=== PATIENT | male | born 1950 | race Hispanic/Latino ===

== ENCOUNTER 2016-06-12 15:17 | Emergency (ER) | payer MEDICARE ==
[2016-06-12 16:20] VITALS: BP 120/82
[2016-06-12] MEDS ORDERED: MARCAINE 0.5% INFILTRATI ONE (18:14)
[2016-06-12] MEDS ORDERED: TRIPLE ANTIBIOTIC TP ONE ×2 (18:14→19:10)
[2016-06-12] MEDS ORDERED: NACL 0.9% IR ONE (18:14)
[2016-06-12] MEDS ORDERED: BOOSTRIX IM ONE (18:14)
[2016-06-12] MEDS ORDERED: NORCO 5/325 PO ONE (18:14)
--- NOTE | 2016-06-12 18:28 | Emergency Department Report ---
HPI - General Chief Complaint: Wound/Laceration Time Seen by Provider: 06/12/16 18:12 - HPI HPI: 65-year-old male presents today with a cut to his right thumb that occurred at 11 AM this morning. Patient states he was working in [place], [place] when he cut his thumb with a utility knife. Positive for bleeding. Denies numbness, weakness, paresthesias. Tetanus status unknown. Denies fever, chills, nausea, vomiting, chest pain, shortness of breath, abdominal pain. ED Past Medical Hx - Past Medical History Previous Medical History?: Yes Hx Arthritis: Yes Hx Psychiatric Treatment: Yes (anxiety, sleeping disorder) Additional medical history: Back pain - Surgical History Past Surgical History?: No - Social History Smoking Status: Former Smoker Substance Use Type: Alcohol, Prescribed - Medications Home Medications: Home Medications Medication Instructions Recorded Confirmed Last Taken Type Acetaminophen/Codeine [Tylenol #3] 1 tab PO Q6H PRN #14 tab 06/12/16 Unknown Rx Sertraline HCl [Zoloft] 100 mg PO 06/12/16 06/12/16 History Zolpidem [Ambien] 10 mg PO QHS 06/12/16 06/12/16 Unknown History tiZANidine [Zanaflex] 4 mg PO DAILY 06/12/16 06/12/16 06/10/16 History traMADol [Ultram] 50 mg PO Q4HR PRN 06/12/16 06/12/16 Unknown History ED Review of Systems ROS: Stated complaint: RT HAND THUMB LAC Other details as noted in HPI Constitutional: denies: chills, fever, malaise Eyes: denies: eye pain ENT: denies: ear pain, throat pain, congestion Respiratory: denies: cough, shortness of breath, wheezing Cardiovascular: denies: chest pain, palpitations Endocrine: no symptoms reported Gastrointestinal: denies: abdominal pain, nausea, vomiting Skin: denies: rash Neurological: denies: headache, weakness, numbness, paresthesias Physical Exam - Physical Exam Vital Signs: Vital Signs 06/12/16 16:15 Temperature 98.1 F Pulse Rate 67 Respiratory 18 Rate Blood Pressure 120/82 O2 Sat by Pulse 96 Oximetry Physical Exam: GENERAL: The patient is well-developed and well-nourished. Patient is in NAD. HEAD: Normocephalic. Atraumatic. CHEST/LUNGS: Clear to auscultation throughout. HEART/CARDIOVASCULAR: Regular rate and rhythm. ABDOMEN: Abdomen is soft, nontender. Bowel sounds normoactive. No guarding or rebound tenderness. RIGHT HAND: 1.5cm superficial laceration noted over the first metacarpophalangeal joint. No active bleeding. Normal sensation. 2 point discrimination intact. Peripheral pulses intact. Capillary refill less than 2 seconds. NEURO: Alert and oriented x 3. Normal gait. ED Course Vital Signs 06/12/16 16:15 Temperature 98.1 F Pulse Rate 67 Respiratory 18 Rate Blood Pressure 120/82 O2 Sat by Pulse 96 Oximetry - Laceration /Wound Repair Right Hand Wound Location: upper extremity Wound Length (cm): 2 Wound's Depth, Shape: superficial Wound Explored: clean Irrigated w/ Saline (ccs): 500 Betadine Prep?: Yes Anesthesia: 1% Lidocaine Volume Anesthetic (ccs): 2 Wound Repaired With: sutures Suture Size/Type: 5:0 Number of Sutures: 4 Layer Closure?: No Progress: Patient tolerated the procedure well. Wound care instructions were provided. ED Medical Decision Making - Lab Data Vital Signs 06/12/16 16:15 Temperature 98.1 F Pulse Rate 67 Respiratory 18 Rate Blood Pressure 120/82 O2 Sat by Pulse 96 Oximetry - Medical Decision Making 65-year-old male presents today with a laceration of his right hand. His tetanus status was updated today. The wound was closed using 5 sutures. Patient tolerated the procedure well. Wound care instructions were provided. Patient is in no acute distress at this time. He will be discharged home and is encouraged to follow up with a primary care provider. He will be sent home on Tylenol 3 and is encouraged to return to the emergency room for any worsening symptoms. Critical care attestation.: If time is entered above; I have spent that time in minutes in the direct care of this critically ill patient, excluding procedure time. ED Disposition Clinical Impression: Laceration Disposition: DISCHARGED TO HOME OR SELFCARE Is pt being admited?: No Does the pt Need Aspirin: No Condition: Stable Instructions: Suture Care (ED), Laceration (ED) Additional Instructions: Had the sutures removed in 8-10 days. Follow-up with primary care provider. Return to the emergency department if symptoms worsen. Prescriptions: Acetaminophen/Codeine [Tylenol #3] 1 tab PO Q6H PRN #14 tab PRN Reason: Pain Referrals: PRIMARY CARE, [Primary Care Provider] - 3-5 Days [facility] [Outside] - 3-5 Days Forms: Work/School Release Form(ED) Time of Disposition: 19:13
== END 2016-06-12 19:15 | disposition home or self-care (01) ==
LOC: ED 15:17
DX: S61.012A Laceration without foreign body of left thumb without damage to nail, initial encounter (principal); Z87.891 Personal history of nicotine dependence; Z87.39 Personal history of other diseases of the musculoskeletal system and connective tissue; W26.0XXA Contact with knife, initial encounter; Y93.9 Activity, unspecified; Y92.9 Unspecified place or not applicable; Y99.9 Unspecified external cause status
CPT/HCPCS: 90471; 90715; A6250

== ENCOUNTER 2020-10-06 13:57 | Emergency (ER) | payer MEDICARE | END 2020-10-06 14:20 | disposition left against medical advice (07) | LOC: ED 13:57 | DX: R30.0 Dysuria (principal); Z53.21 Procedure and treatment not carried out due to patient leaving prior to being seen by health care provider ==

== ENCOUNTER 2020-10-06 15:53 | Observation (INO) | payer MEDICARE ==
[2020-10-06] MEDS ORDERED: MORPHINE 4 MG/1 ML INJ IV ONE (20:19)
[2020-10-06] MEDS ORDERED: ACETAMINOPHEN 325 MG TAB PO STA (20:19)
[2020-10-06] MEDS ORDERED: IPRATROPIUM 0.02% NEBU 2.5 ML IH ONE (20:20)
[2020-10-06] MEDS ORDERED: methylPREDNISolone Sod Succinate 125 MG/2 ML INJ IV ONE (20:20)
[2020-10-06] MEDS ORDERED: ALBUTEROL 2.5 MG/3 ML NEBU IH ONE (20:20)
--- NOTE | 2020-10-06 20:21 | Emergency Department Report ---
ED General Adult HPI - General Chief complaint: Urogenital-Male Stated complaint: UNABLE TO URINE PUI?: No Time Seen by Provider: 10/06/20 20:18 Source: patient, RN notes reviewed Mode of arrival: Ambulatory Limitations: Other (Patient is somewhat of a poor historian) - History of Present Illness Initial comments: The patient was evaluated in the emergency department for symptoms described in the history of present illness. He/she was evaluated in the context of the global COVID-19 pandemic, which necessitated consideration that the patient might be at risk for infection with the virus that causes COVID-19. Institutional protocols and algorithms that pertain to the evaluation of patients at risk for COVID-19 are in a state of rapid change based on information released by regulatory bodies including the CDC and federal and state organizations. These policies and algorithms were followed during the patient's care in the emergency department. Please note that these policies, procedures and recommendations changed on a rapid basis. The patient is a 70-year-old gentleman. He is not known to myself previously. His primary urologist is reportedly Dr. Barney. He believes his primary care doctor is Dr. Gil. The patient initially presents with a complaint of difficulty urinating. He recently had prostatic seeds implanted for prostate cancer a few days ago by his outpatient urologist. He is not having testicular pain or perineal pain, and reports intermittent difficulty in urinating, although this is now resolved. On review systems, he endorses cough, wheezing and shortness of breath, he does not know if he has a history of asthma, reactive airways disease, or bronchitis. He thinks that he may have been diagnosed with bronchitis in the past but he is not certain. He reports that he completed 1 round of COVID-19 vaccination series, and he denies loss of taste and smell. He also endorses left lateral thorax pain, and left upper quadrant pain, after a mechanical fall a few days ago, he did not hit his head. To the best of his knowledge, he does not have a history of atrial fibrillation or atrial flutter. He states he does not take systemic anticoagulation. -: Gradual, Sudden Location: chest (Left lateral chest), abdomen (Left upper quadrant) Severity scale (0 -10): 0 Quality: aching Consistency: intermittent Improves with: rest Worsens with: movement - Related Data Home Medications Medication Instructions Recorded Confirmed Last Taken Sertraline HCl [Zoloft] 100 mg PO 06/12/16 06/12/16 Zolpidem (Nf) [Ambien] 10 mg PO QHS 06/12/16 06/12/16 Unknown tiZANidine [Zanaflex] 4 mg PO DAILY 06/12/16 06/12/16 06/10/16 traMADoL [Ultram] 50 mg PO Q4HR PRN 06/12/16 06/12/16 Unknown Previous Rx's Medication Instructions Recorded Last Taken Type Acetaminophen/Codeine [Tylenol #3] 1 tab PO Q6H PRN #14 tab 06/12/16 Unknown Rx Allergies Allergy/AdvReac Type Severity Reaction Status Date / Time No Known Allergies Allergy Unverified 06/12/16 16:12 ED Review of Systems ROS: Stated complaint: UNABLE TO URINE Other details as noted in HPI Constitutional: malaise, other (Denies loss of taste and smell). denies: fever, weakness ENT: congestion Respiratory: cough, shortness of breath, wheezing Cardiovascular: chest pain (Left lateral thorax) Gastrointestinal: abdominal pain Genitourinary: as per HPI, other (Difficulty urinating). denies: dysuria, testicular pain Musculoskeletal: arthralgia (Left lateral rib cage pain), myalgia Skin: other (Perineum and testicular ecchymosis) Hematological/Lymphatic: denies: easy bleeding ED Past Medical Hx - Past Medical History Previous Medical History?: Yes Hx of Cancer: Yes (prostate) Hx Arthritis: Yes Hx Psychiatric Treatment: Yes (anxiety, sleeping disorder) Additional medical history: Back pain - Surgical History Past Surgical History?: No - Social History Smoking Status: Never Smoker Substance Use Type: Alcohol - Medications Home Medications: Home Medications Medication Instructions Recorded Confirmed Last Taken Type Acetaminophen/Codeine [Tylenol #3] 1 tab PO Q6H PRN #14 tab 06/12/16 Unknown Rx Sertraline HCl [Zoloft] 100 mg PO 06/12/16 06/12/16 History Zolpidem (Nf) [Ambien] 10 mg PO QHS 06/12/16 06/12/16 Unknown History tiZANidine [Zanaflex] 4 mg PO DAILY 06/12/16 06/12/16 06/10/16 History traMADoL [Ultram] 50 mg PO Q4HR PRN 06/12/16 06/12/16 Unknown History ED Physical Exam - General Limitations: No Limitations General appearance: alert, in no apparent distress - Head Head exam: Present: atraumatic, normocephalic - Eye Eye exam: Present: normal appearance, EOMI. Absent: nystagmus - ENT ENT exam: Present: normal exam, normal orophraynx, mucous membranes moist, normal external ear exam - Neck Neck exam: Present: normal inspection, full ROM. Absent: tenderness, meningismus - Respiratory Respiratory exam: Present: respiratory distress, wheezes, rhonchi, chest wall tenderness - Cardiovascular Cardiovascular Exam: Present: tachycardia, irregular rhythm, normal heart sounds. Absent: systolic murmur, diastolic murmur, rubs, gallop - GI/Abdominal GI/Abdominal exam: Present: soft, tenderness, other (There is left upper quadrant tenderness, without rebound, guarding or peritoneal sign). Absent: distended, guarding, rigid, pulsatile mass - Rectal Rectal exam: Present: deferred - exam: Present: other (There is normal testicular lie. There is normal cremasteric reflex. There is no testicular tenderness. There is no testicular swelling). Absent: normal inspection (Testicular ecchymosis noted. Perenium ecchymosis noted. chaperoned by Kavita Chang), testicular tenderness - Extremities Exam Extremities exam: Present: normal inspection, full ROM, pedal edema (1+ edema in the bilateral lower extremity), other (2+ pulses noted in the bilateral upper and lower extremities. There is no palpable cord. negative Homans sign. Muscular compartments are soft. The pelvis is stable.). Absent: calf tenderness - Back Exam Back exam: Present: normal inspection, full ROM. Absent: tenderness, CVA tenderness (R), CVA tenderness (L), paraspinal tenderness, vertebral tenderness - Neurological Exam Neurological exam: Present: alert, oriented X3, other (No facial droop. Tongue midline. Extraocular movements intact bilaterally. Facial sensation intact to light touch in V1, V2, V3 distribution bilaterally. 5 and a 5 strength in 4 extremities. Sensation intact to light touch in 4 extremities.) - Psychiatric Psychiatric exam: Present: anxious - Skin Skin exam: Present: warm, intact, ecchymosis ED Course Vital Signs 10/06/20 10/06/20 10/06/20 16:59 20:04 22:31 Temperature 98 F Pulse Rate 117 H 104 H 118 H Pulse Rate [ Anterior Bilateral Throughout] Pulse Rate [ Bilateral Throughout] Respiratory 20 19 Rate Respiratory Rate [Anterior Bilateral Throughout] Respiratory Rate [Bilateral Throughout] Blood Pressure 138/88 130/88 Blood Pressure 167/91 [Left] O2 Sat by Pulse 96 98 Oximetry 10/06/20 22:35 Temperature Pulse Rate Pulse Rate [ 113 H Anterior Bilateral Throughout] Pulse Rate [ 111 H Bilateral Throughout] Respiratory Rate Respiratory 20 Rate [Anterior Bilateral Throughout] Respiratory 20 Rate [Bilateral Throughout] Blood Pressure Blood Pressure [Left] O2 Sat by Pulse Oximetry - Reevaluation(s) Reevaluation #1: 10/06/20 22:28 Differential diagnosis, including but not limited to: BPH, urinary hesitancy, urinary tract infection, prostatitis, reactive airway disease, chest wall contusion, traumatic pulmonary disease, traumatic intra-abdominal disease A. fib with RVR, a flutter with RVR, permanent versus paroxysmal versus other Assessment and plan: 70-year-old gentleman with multiple complaints. Acute issue #1, intermittent difficulty with urinating, now resolved, in the context of recent prostatic seed placement a few days ago as an outpatient. He has no perineum tenderness, and no testicular tenderness. He reports being able to urinate without difficulty. Urine sample requested. Supportive care at this time. Acute complaint #2, left upper quadrant pain/left lateral rib pain, after m echanical fall. Administer pain medication, obtain x-ray of the chest, and CT scan of the abdomen pelvis to assess for posttraumatic sequelae. Incidentally found to be wheezing, patient is not sure if he has a history of reactive airways disease, also found to be in A. fib with RVR, patient does not know if he has a history of A. fib with RVR. Patient denies Covid exposure and reports having received a Covid vaccination. He also reports that he has no loss of taste or smell. Nursing team to request/reconcile home medications. Give albuterol, Atrovent, steroids, diltiazem, and reassess after initial data points. CT scan abdomen pelvis pending at this time. 10/06/20 23:09 CT scan of the abdomen pelvis is negative for acute traumatic findings. X-ray of the chest is negative for acute traumatic findings and/or infiltrate. Heart rate currently 89 bpm. Patient is still in A. fib. Patient does not know if he truly has a history of A. fib/flutter. Given advanced age, reactive airways disease, A. fib/flutter of unknown duration and chronicity, lower extremity edema, patient will be medicated with Lovenox, given Lasix, we have recommended admission to the medical service for expedient diagnostic work-up and evaluation. The patient is amenable to this plan of care. Discussed with hospital medicine nurse practitioner, Alessandro Varghese, working with Dr Lara; patient to be admitted to the medical service. Reevaluation #2: 10/06/20 23:11 Patient able to urinate without difficulty. Impetus for admission at this time is A. fib with RVR, of unknown duration and chronicity, lower extremity edema, proBNP of over 3000, and shortness of breath/reactive airways disease, uncertain if CHF, or reactive airways disease, to be admitted for expedited cardiac work-up. ED Medical Decision Making - Lab Data Result diagrams: 10/06/20 20:55 10/06/20 20:55 Vital Signs 10/06/20 10/06/20 16:59 20:04 Temperature 98 F Pulse Rate 117 H 104 H Respiratory 20 19 Rate Blood Pressure 138/88 Blood Pressure 167/91 [Left] O2 Sat by Pulse 96 98 Oximetry Lab Results 10/06/20 10/06/20 10/06/20 Range/Units 20:55 20:55 20:55 WBC 5.7 (4.5-11.0) K/mm3 RBC 4.26 (3.65-5.03) M/mm3 Hgb 13.5 (11.8-15.2) gm/dl Hct 37.4 (35.5-45.6) % MCV 88 (84-94) fl MCH 32 (28-32) pg MCHC 36 H (32-34) % RDW 13.0 L (13.2-15.2) % Plt Count 160 (140-440) K/mm3 Lymph % (Auto) 22.2 (13.4-35.0) % Jones % (Auto) 11.4 H (0.0-7.3) % Eos % (Auto) 0.5 (0.0-4.3) % Baso % (Auto) 1.3 (0.0-1.8) % Lymph # (Auto) 1.3 (1.2-5.4) K/mm3 Jones # (Auto) 0.7 (0.0-0.8) K/mm3 Eos # (Auto) 0.0 (0.0-0.4) K/mm3 Baso # (Auto) 0.1 (0.0-0.1) K/mm3 Seg Neutrophils % 64.6 (40.0-70.0) % Seg Neutrophils # 3.7 (1.8-7.7) K/mm3 PT 13.9 (12.2-14.9) Sec. INR 1.09 (0.87-1.13) Sodium 138 (137-145) mmol/L Potassium 3.7 (3.6-5.0) mmol/L Chloride 100.1 (98-107) mmol/L Carbon Dioxide 24 (22-30) mmol/L Anion Gap 18 mmol/L BUN 14 (9-20) mg/dL Creatinine 0.9 (0.8-1.3) mg/dL Estimated GFR > 60 ml/min BUN/Creatinine Ratio 16 % Glucose 105 H (75-100) mg/dL Calcium 8.7 (8.4-10.2) mg/dL Magnesium 2.00 (1.7-2.3) mg/dL Total Bilirubin 0.50 (0.1-1.2) mg/dL AST 31 (5-40) units/L ALT 26 (7-56) units/L Alkaline Phosphatase 80 (35-129) units/L Total Creatine Kinase 129 (55-170) units/L Troponin T (0.00-0.029) ng/mL NT-Pro-B Natriuret Pep 3456 H (0-900) pg/mL Total Protein 6.8 (6.3-8.2) g/dL Albumin 4.1 (3.9-5) g/dL Albumin/Globulin Ratio 1.5 % Lipase 28 (13-60) units/L TSH (0.270-4.200) mlU/mL 10/06/20 10/06/20 Range/Units 20:58 20:58 WBC (4.5-11.0) K/mm3 RBC (3.65-5.03) M/mm3 Hgb (11.8-15.2) gm/dl Hct (35.5-45.6) % MCV (84-94) fl MCH (28-32) pg MCHC (32-34) % RDW (13.2-15.2) % Plt Count (140-440) K/mm3 Lymph % (Auto) (13.4-35.0) % Jones % (Auto) (0.0-7.3) % Eos % (Auto) (0.0-4.3) % Baso % (Auto) (0.0-1.8) % Lymph # (Auto) (1.2-5.4) K/mm3 Jones # (Auto) (0.0-0.8) K/mm3 Eos # (Auto) (0.0-0.4) K/mm3 Baso # (Auto) (0.0-0.1) K/mm3 Seg Neutrophils % (40.0-70.0) % Seg Neutrophils # (1.8-7.7) K/mm3 PT (12.2-14.9) Sec. INR (0.87-1.13) Sodium (137-145) mmol/L Potassium (3.6-5.0) mmol/L Chloride (98-107) mmol/L Carbon Dioxide (22-30) mmol/L Anion Gap mmol/L BUN (9-20) mg/dL Creatinine (0.8-1.3) mg/dL Estimated GFR ml/min BUN/Creatinine Ratio % Glucose (75-100) mg/dL Calcium (8.4-10.2) mg/dL Magnesium (1.7-2.3) mg/dL Total Bilirubin (0.1-1.2) mg/dL AST (5-40) units/L ALT (7-56) units/L Alkaline Phosphatase (35-129) units/L Total Creatine Kinase (55-170) units/L Troponin T < 0.010 (0.00-0.029) ng/mL NT-Pro-B Natriuret Pep (0-900) pg/mL Total Protein (6.3-8.2) g/dL Albumin (3.9-5) g/dL Albumin/Globulin Ratio % Lipase (13-60) units/L TSH 0.778 (0.270-4.200) mlU/mL - EKG Data -: EKG Interpreted by [place] Rate: tachycardia - EKG Data When compared to previous EKG there are: previous EKG unavailable 10/06/20 22:50 EKG interpreted at 20: 33 A. fib/flutter waves noted in V1, 99 bpm. Normal axis, left ventricular hypertrophy, QTC prolonged, This is an abnormal EKG, this is not a STEMI There is no prior for comparison. - Radiology Data Radiology results: pending, report reviewed, image reviewed [address] [address] XRay Report Signed Patient: ANNETTE ESCUDERO MR#: [id number] : 1950 Acct:[id number] Age/Sex: 70 / M ADM Date: 10/06/20 Loc: ED Attending Dr: Ordering Physician: JACKIE PULIDO MD Date of Service: 10/06/20 Procedure(s): XR chest routine 2V Accession Number(s): [id number] cc: JACKIE PULIDO MD Fluoro Time In Minutes: CHEST 2 VIEWS INDICATION / CLINICAL INFORMATION: cough wheezing, lefty sided rib pain. COMPARISON: None available. FINDINGS: SUPPORT DEVICES: None. HEART / MEDIASTINUM: No significant abnormality. LUNGS / PLEURA: No significant pulmonary or pleural abnormality. No pneumothorax. ADDITIONAL FINDINGS: No significant additional findings. IMPRESSION: 1. No acute findings. Signer Name: John Prasad MD Signed: 10/06/2020 10:02 PM Workstation Name: [id number] Transcribed By: TL Dictated By: John Prasad MD Electronically Authenticated By: John Prasad MD Signed Date/Time: 10/06/202201 DD/ [address] [address] Cat Scan Report Signed Patient: ANNETTE ESCUDERO MR#: [id number] : 1950 Acct:[id number] Age/Sex: 70 / M ADM Date: 10/06/20 Loc: ED Attending Dr: Ordering Physician: JACKIE PULIDO MD Date of Service: 10/06/20 Procedure(s): CT abdomen pelvis w con Accession Number(s): [id number] cc: JACKIE PULIDO MD CT ABDOMEN AND PELVIS WITH CONTRAST INDICATION: luq pain, fall, urinary retention CONTRAST: 100 cc Omnipaque 300 IV COMPARISON: None available. All CT scans at this location are performed using CT dose reduction for ALARA by means of automated exposure control. FINDINGS: Lung bases are clear. No fractures are seen. No pneumoperitoneum is noted. No retroperitoneal or pelvic hemorrhage are seen. No free fluid is noted. Aorta appears intact. No mesenteric hemorrhage is noted. No evidence of visceral injury is seen. Small bilateral renal cysts and probable cysts are seen. No urinary or bowel obstructive changes are noted. No inflammatory changes are seen. Appendix appears within normal limits. Urinary bladder is distended but shows no acute abnormalities. Prostatic brachytherapy seeds are seen with mild prostatomegaly. Seminal vesicles appear within normal limits. No lymphadenopathy is seen. IMPRESSION: No acute abnormalities are seen Signer Name: Phi Archibald MD Signed: 10/06/2020 10:39 PM Workstation Name: [id number] Transcribed By: GJ Dictated By: Phi Archibald MD Electronically Authenticated By: Phi Archibald MD Signed Date/Time: 10/06/202238 DD/ 33 Critical Care Time: Yes Critical care time in (mins) excluding proc time.: 35 Critical care attestation.: If time is entered above; I have spent that time in minutes in the direct care of this critically ill patient, excluding procedure time. ED Disposition Clinical Impression: Urinary hesitancy, Atrial fibrillation with rapid ventricular response, Left upper quadrant abdominal pain, Fall, Reactive airway disease Disposition: OP ADMIT IP TO THIS HOSP Is pt being admited?: Yes Does the pt Need Aspirin: No Condition: Good Referrals: EDGARDO RODRIGUEZ MD [Primary Care Provider] - 3-5 Days
[2020-10-06] MEDS ORDERED: dilTIAZem 25 MG/5 ML INJ IV ONE (20:54)
[2020-10-06 21:09] LABS: Basophils # (Auto) 0.1 K/mm3 (0.0-0.1); Basophils % (Auto) 1.3 % (0.0-1.8); Eosinophils % (Auto) 0.5 % (0.0-4.3); Hematocrit 37.4 % (35.5-45.6); Hemoglobin 13.5 gm/dl (11.8-15.2); Lymphocytes # (Auto) 1.3 K/mm3 (1.2-5.4); Lymphocytes % (Auto) 22.2 % (13.4-35.0); Mean Corpuscular HGB Conc 36 % (32-34); Mean Corpuscular Volume 88 fl (84-94); Monocytes # (Auto) 0.7 K/mm3 (0.0-0.8); Monocytes % (Auto) 11.4 % (0.0-7.3); Platelet Count 160 K/mm3 (140-440); Red Blood Count 4.26 M/mm3 (3.65-5.03)
[2020-10-06 21:20] LABS: INR 1.09 (0.87-1.13)
[2020-10-06 21:32] LABS: Alanine Aminotransferase 26 units/L (7-56); Albumin 4.1 g/dL (3.9-5); BUN/Creatinine Ratio 16; Blood Urea Nitrogen 14 mg/dL (9-20); Calcium 8.7 mg/dL (8.4-10.2); Hemolysis Index 21
--- NOTE | 2020-10-06 22:07 | XRay Report ---
CHEST 2 VIEWS INDICATION / CLINICAL INFORMATION: cough wheezing, lefty sided rib pain. COMPARISON: None available. FINDINGS: SUPPORT DEVICES: None. HEART / MEDIASTINUM: No significant abnormality. LUNGS / PLEURA: No significant pulmonary or pleural abnormality. No pneumothorax. ADDITIONAL FINDINGS: No significant additional findings. IMPRESSION: 1. No acute findings. Signer Name: John Prasad MD Signed: 10/06/2020 10:02 PM Workstation Name: [id number]
[2020-10-06] MEDS ORDERED: methylPREDNISolone Sod Succinate 125 MG/2 ML INJ ONE (22:33)
--- NOTE | 2020-10-06 22:44 | Cat Scan Report ---
CT ABDOMEN AND PELVIS WITH CONTRAST INDICATION: luq pain, fall, urinary retention CONTRAST: 100 cc Omnipaque 300 IV COMPARISON: None available. All CT scans at this location are performed using CT dose reduction for ALARA by means of automated e xposure control. FINDINGS: Lung bases are clear. No fractures are seen. No pneumoperitoneum is noted. No retroperitone al or pelvic hemorrhage are seen. No free fluid is noted. Aorta appears intact. No mesenteric hemorrh age is noted. No evidence of visceral injury is seen. Small bilateral renal cysts and probable cysts are seen. No urinary or bowel obstructive changes are noted. No inflammatory changes are seen. Append ix appears within normal limits. Urinary bladder is distended but shows no acute abnormalities. Prost atic brachytherapy seeds are seen with mild prostatomegaly. Seminal vesicles appear within normal alex its. No lymphadenopathy is seen. IMPRESSION: No acute abnormalities are seen Signer Name: Phi Archibald MD Signed: 10/06/2020 10:39 PM Workstation Name: [id number]
[2020-10-06] MEDS ORDERED: ENOXAPARIN 100 MG/1 ML INJ SUB-Q STA (23:07)
[2020-10-06] MEDS ORDERED: FUROSEMIDE 20 MG/2 ML INJ IV ONE (23:07)
[2020-10-06] MEDS ORDERED: dilTIAZem 30 MG TAB PO ONE (23:07)
[2020-10-06] MEDS ORDERED: NITROGLYCERIN 0.4 MG TAB SUBL SL PRN (23:15)
[2020-10-06] MEDS ORDERED: ALBUTEROL 2.5 MG/3 ML NEBU IH PRN (23:20)
--- NOTE | 2020-10-06 23:58 | History and Physical Report ---
History of Present Illness Date of examination: 10/06/20 Date of admission: 10/06/2020 Chief complaint: Dysuria History of present illness: 70-year-old male with history of prostate cancer and A. fib who presents [facility] ED with complaints of dysuria x2 days. Patient states he has been experiencing a burning sensation with urination since undergoing rostatic seeds implant 2 days ago. Denies testicular pain, hematuria, urinary hesitancy, or frequency. While in the ED, he was found to be in A. fib with RVR. When questioned about his medical history patient states, " I was diagnosed with an irregular heartbeat 3 years ago, but I do not take anything for it". He was treated with IV diltiazem 30 mg x 1 and was responsive. Patient admits to having a mechanical fall a day ago and complains of left upper quadrant pain/left lateral rib pain. He rates his pain 6/10, pain is aggravated with movement and relieved with pain meds. Endorses intermittent bilateral lower extremity edema, cough, wheezing shortness of breath. Patient has received 1/2 COVID-19 vaccination. Denies history of heart failure, chest pain, fever, abdominal pain, hemoptysis, loss of smell, loss of taste, hematuria, hematochezia, recent sick contacts. Past History Past Medical History: other (" Irregular heartbeat" a.fib not on ac/ or rate controlled, arthritis, anxiety, sleep disorder, chronic back pain, prostate CA) Past Surgical History: Other (s/p seed implantation (10/04) Dr. Shelby (onc)) Social history: , lives with family, full code. denies: smoking, alcohol abuse, prescription drug abuse, IV drug use Family history: no significant family history Medications and Allergies Allergies Allergy/AdvReac Type Severity Reaction Status Date / Time No Known Allergies Allergy Unverified 06/12/16 16:12 Home Medications Medication Instructions Recorded Confirmed Last Taken Type Acetaminophen/Codeine [Tylenol #3] 1 tab PO Q6H PRN #14 tab 06/12/16 Unknown Rx Sertraline HCl [Zoloft] 100 mg PO 06/12/16 06/12/16 History Zolpidem (Nf) [Ambien] 10 mg PO QHS 06/12/16 06/12/16 Unknown History tiZANidine [Zanaflex] 4 mg PO DAILY 06/12/16 06/12/16 06/10/16 History traMADoL [Ultram] 50 mg PO Q4HR PRN 06/12/16 06/12/16 Unknown History Active Meds: Active Medications Albuterol (Albuterol 2.5 Mg/3 Ml Nebu) 2.5 mg IH Q4HRT PRN PRN Reason: Shortness Of Breath Aspirin (Aspirin 325 Mg Tab) 325 mg PO QDAY JANINE Carvedilol (Carvedilol 3.125 Mg Tab) 6.25 mg PO BID JANINE Enoxaparin Sodium (Enoxaparin 80 Mg/0.8 Ml Inj) 70 mg SUB-Q Q12HR JANINE; Protocol Furosemide (Furosemide 40 Mg/4 Ml Inj) 20 mg IV DAILY JANINE Lisinopril (Lisinopril 5 Mg Tab) 5 mg PO QDAY JANINE Nitroglycerin (Nitroglycerin 0.4 Mg Tab Subl) 0.4 mg SL .Q5MIN PRN PRN Reason: Chest Pain Review of Systems All systems: negative (As noted in HPI) Exam - Physical Exam Narrative exam: Physical exam General appearance: Present: No acute distress, alert and oriented 3, well- nourished, well-developed, older adult male - EENT Eyes: Present: PERRL, EOM intact ENT: hearing intact, normal dentition - Neck Neck: Present: supple, normal ROM - Respiratory Respiratory effort: Non-labored Respiratory: Scattered wheezing - Cardiovascular Heart rate: 89 (bpm) Rhythm: A. fib Heart Sounds: Present: S1 & S2. Absent: rub, click - Extremities Extremities: no ischemia, pulses intact, 1+ bilateral lower extremity pitting edema - Peripheral Assessment Peripheral Pulses: within normal limits - Abdominal General gastrointestinal: soft, non-tender, normal bowel sounds - Integumentary Integumentary: Present: warm, dry - Musculoskeletal Musculoskeletal: Able to move all extremities -Neurological Neurological: CN II-XII intact - Psychiatric Psychiatric: cooperative - Constitutional Vitals: Temp Pulse Resp BP Pulse Ox 98 F 113 H 20 130/88 98 10/06/20 16:59 10/06/20 22:35 10/06/20 22:35 10/06/20 22:31 10/06/20 20:04 HEART Score - HEART Score Troponin: WBC 5.7 K/mm3 (4.5-11.0) 10/06/20 20:55 RBC 4.26 M/mm3 (3.65-5.03) 10/06/20 20:55 Hgb 13.5 gm/dl (11.8-15.2) 10/06/20 20:55 Hct 37.4 % (35.5-45.6) 10/06/20 20:55 MCV 88 fl (84-94) 10/06/20 20:55 MCH 32 pg (28-32) 10/06/20 20:55 MCHC 36 % (32-34) H 10/06/20 20:55 RDW 13.0 % (13.2-15.2) L 10/06/20 20:55 Plt Count 160 K/mm3 (140-440) 10/06/20 20:55 Lymph % (Auto) 22.2 % (13.4-35.0) 10/06/20 20:55 [place] % (Auto) 11.4 % (0.0-7.3) H 10/06/20 20:55 Eos % (Auto) 0.5 % (0.0-4.3) 10/06/20 20:55 Baso % (Auto) 1.3 % (0.0-1.8) 10/06/20 20:55 Lymph # (Auto) 1.3 K/mm3 (1.2-5.4) 10/06/20 20:55 [place] # (Auto) 0.7 K/mm3 (0.0-0.8) 10/06/20 20:55 Eos # (Auto) 0.0 K/mm3 (0.0-0.4) 10/06/20 20:55 Baso # (Auto) 0.1 K/mm3 (0.0-0.1) 10/06/20 20:55 Seg Neutrophils % 64.6 % (40.0-70.0) 10/06/20 20:55 Seg Neutrophils # 3.7 K/mm3 (1.8-7.7) 10/06/20 20:55 PT 13.9 Sec. (12.2-14.9) 10/06/20 20:55 INR 1.09 (0.87-1.13) 10/06/20 20:55 Sodium 138 mmol/L (137-145) 10/06/20 20:55 Potassium 3.7 mmol/L (3.6-5.0) 10/06/20 20:55 Chloride 100.1 mmol/L (98-107) 10/06/20 20:55 Carbon Dioxide 24 mmol/L (22-30) 10/06/20 20:55 Anion Gap 18 mmol/L 10/06/20 20:55 BUN 14 mg/dL (9-20) 10/06/20 20:55 Creatinine 0.9 mg/dL (0.8-1.3) 10/06/20 20:55 Estimated GFR > 60 ml/min 10/06/20 20:55 BUN/Creatinine Ratio 16 % 10/06/20 20:55 Glucose 105 mg/dL (75-100) H 10/06/20 20:55 Calcium 8.7 mg/dL (8.4-10.2) 10/06/20 20:55 Magnesium 2.00 mg/dL (1.7-2.3) 10/06/20 20:55 Total Bilirubin 0.50 mg/dL (0.1-1.2) 10/06/20 20:55 AST 31 units/L (5-40) 10/06/20 20:55 ALT 26 units/L (7-56) 10/06/20 20:55 Alkaline Phosphatase 80 units/L (35-129) 10/06/20 20:55 Total Creatine Kinase 129 units/L (55-170) 10/06/20 20:55 Troponin T < 0.010 ng/mL (0.00-0.029) 10/06/20 20:58 NT-Pro-B Natriuret Pep 3456 pg/mL (0-900) H 10/06/20 20:55 Total Protein 6.8 g/dL (6.3-8.2) 10/06/20 20:55 Albumin 4.1 g/dL (3.9-5) 10/06/20 20:55 Albumin/Globulin Ratio 1.5 % 10/06/20 20:55 Lipase 28 units/L (13-60) 10/06/20 20:55 TSH 0.778 mlU/mL (0.270-4.200) 10/06/20 20:58 Results - Labs CBC & Chem 7: 10/06/20 20:55 10/06/20 20:55 Labs: Laboratory Last Values WBC 5.7 K/mm3 (4.5-11.0) 10/06/20 20:55 RBC 4.26 M/mm3 (3.65-5.03) 10/06/20 20:55 Hgb 13.5 gm/dl (11.8-15.2) 10/06/20 20:55 Hct 37.4 % (35.5-45.6) 10/06/20 20:55 MCV 88 fl (84-94) 10/06/20 20:55 MCH 32 pg (28-32) 10/06/20 20:55 MCHC 36 % (32-34) H 10/06/20 20:55 RDW 13.0 % (13.2-15.2) L 10/06/20 20:55 Plt Count 160 K/mm3 (140-440) 10/06/20 20:55 Lymph % (Auto) 22.2 % (13.4-35.0) 10/06/20 20:55 [place] % (Auto) 11.4 % (0.0-7.3) H 10/06/20 20:55 Eos % (Auto) 0.5 % (0.0-4.3) 10/06/20 20:55 Baso % (Auto) 1.3 % (0.0-1.8) 10/06/20 20:55 Lymph # (Auto) 1.3 K/mm3 (1.2-5.4) 10/06/20 20:55 [place] # (Auto) 0.7 K/mm3 (0.0-0.8) 10/06/20 20:55 Eos # (Auto) 0.0 K/mm3 (0.0-0.4) 10/06/20 20:55 Baso # (Auto) 0.1 K/mm3 (0.0-0.1) 10/06/20 20:55 Seg Neutrophils % 64.6 % (40.0-70.0) 10/06/20 20:55 Seg Neutrophils # 3.7 K/mm3 (1.8-7.7) 10/06/20 20:55 PT 13.9 Sec. (12.2-14.9) 10/06/20 20:55 INR 1.09 (0.87-1.13) 10/06/20 20:55 Sodium 138 mmol/L (137-145) 10/06/20 20:55 Potassium 3.7 mmol/L (3.6-5.0) 10/06/20 20:55 Chloride 100.1 mmol/L (98-107) 10/06/20 20:55 Carbon Dioxide 24 mmol/L (22-30) 10/06/20 20:55 Anion Gap 18 mmol/L 10/06/20 20:55 BUN 14 mg/dL (9-20) 10/06/20 20:55 Creatinine 0.9 mg/dL (0.8-1.3) 10/06/20 20:55 Estimated GFR > 60 ml/min 10/06/20 20:55 BUN/Creatinine Ratio 16 % 10/06/20 20:55 Glucose 105 mg/dL (75-100) H 10/06/20 20:55 Calcium 8.7 mg/dL (8.4-10.2) 10/06/20 20:55 Magnesium 2.00 mg/dL (1.7-2.3) 10/06/20 20:55 Total Bilirubin 0.50 mg/dL (0.1-1.2) 10/06/20 20:55 AST 31 units/L (5-40) 10/06/20 20:55 ALT 26 units/L (7-56) 10/06/20 20:55 Alkaline Phosphatase 80 units/L (35-129) 10/06/20 20:55 Total Creatine Kinase 129 units/L (55-170) 10/06/20 20:55 Troponin T < 0.010 ng/mL (0.00-0.029) 10/06/20 20:58 NT-Pro-B Natriuret Pep 3456 pg/mL (0-900) H 10/06/20 20:55 Total Protein 6.8 g/dL (6.3-8.2) 10/06/20 20:55 Albumin 4.1 g/dL (3.9-5) 10/06/20 20:55 Albumin/Globulin Ratio 1.5 % 10/06/20 20:55 Lipase 28 units/L (13-60) 10/06/20 20:55 TSH 0.778 mlU/mL (0.270-4.200) 10/06/20 20:58 - Diagnostic Impressions Diagnostic Impressions: CXR: FINDINGS: SUPPORT DEVICES: None. HEART / MEDIASTINUM: No significant abnormality. LUNGS / PLEURA: No significant pulmonary or pleural abnormality. No pneumothorax. ADDITIONAL FINDINGS: No significant additional findings. IMPRESSION: 1. No acute findings. CT Abd/Pelvis: CT ABDOMEN AND PELVIS WITH CONTRAST INDICATION: luq pain, fall, urinary retention CONTRAST: 100 cc Omnipaque 300 IV COMPARISON: None available. All CT scans at this location are performed using CT dose reduction for ALARA by means of automated exposure control. FINDINGS: Lung bases are clear. No fractures are seen. No pneumoperitoneum is noted. No retroperitoneal or pelvic hemorrhage are seen. No free fluid is noted. Aorta appears intact. No mesenteric hemorrhage is noted. No evidence of visceral injury is seen. Small bilateral renal cysts and probable cysts are seen. No urinary or bowel obstructive changes are noted. No inflammatory changes are seen. Appendix appears within normal limits. Urinary bladder is distended but shows no acute abnormalities. Prostatic brachytherapy seeds are seen with mild prostatomegaly. Seminal vesicles appear within normal limits. No lymphadenopathy is seen. IMPRESSION: No acute abnormalities are seen. Assessment and Plan Assessment and plan: Acute CHF (new onset) -BNP elevated 3456 -Troponin negative x1, will trend -CXR negative -Patient has 1+ bilateral lower extremity edema -Start IV Lasix daily -Start ASA, BB, AILYN -Echo pending -Cardiology consulted Atrial fibrillation -With RVR -History of A. fib not on anticoagulation or rate controlled -Was found to be in RVR treated with IV diltiazem 30mg x1 and was responsive -On continuous cafeteria monitor -Start therapeutic Lovenox twice daily -Cardiology consulted Dysuria -Complains of dysuria s/p prostatic seed placement 2 days ago (10/04) -UA pending -We will start on IV ABX if UA is positive -Day team may consider urology consult -Supportive care History of prostate cancer -Follows with urologist and oncologist (Dr. Shelby) as outpatient -s/p prostatic seed placement 2 days ago (10/04) Recent fall -Complained of left upper quadrant pain/left lateral rib pain s/p mechanical fall a day ago -CT abdomen pelvis negative -Pain management -PT OT eval pending -Initiate fall risk precautions HTN -Denies history of HTN -Monitor BP -Started on AILYN and BB GI and DVT PPI -On Pepcid -On therapeutic Lovenox -On SCDs Advance Directives: No VTE prophylaxis?: Chemical, Mechanical Plan of care discussed with patient/family: Yes
[2020-10-07] MEDS ORDERED: oxyCODONE /ACETAMINOPHEN 5-325MG TAB PO PRN (00:07)
[2020-10-07] MEDS ORDERED: FUROSEMIDE 40 MG/4 ML INJ IV SCH (06:00)
[2020-10-07 09:04] LABS: Bilirubin,Urine NEG (Negative); Blood,Urine LG (Negative); Color,Urine Yellow (Yellow); Urobilinogen,Urine < 2.0 mg/dL (<2.0); WBC,Urine < 1.0 /HPF (0.0-6.0)
[2020-10-07 09:18] LABS: RBC,Urine > 182.0 /HPF (0.0-6.0)
[2020-10-07] MEDS ORDERED: carvediloL 3.125 MG TAB PO SCH (10:00)
[2020-10-07] MEDS ORDERED: FUROSEMIDE 20 MG/2 ML INJ IV SCH (10:00)
[2020-10-07] MEDS ORDERED: LISINOPRIL 5 MG TAB PO SCH (10:00)
[2020-10-07] MEDS ORDERED: ENOXAPARIN 80 MG/0.8 ML INJ SUB-Q SCH (10:00)
[2020-10-07] MEDS: LISINOPRIL 5 MG TAB PO SCH (10:30)
[2020-10-07] MEDS: carvediloL 6.25 MG TAB PO SCH ×3 (10:30→21:38)
[2020-10-07] MEDS: ASPIRIN 325 MG TAB PO SCH (10:30)
[2020-10-07] MEDS: FAMOTIDINE 20 MG TAB PO SCH ×3 (10:30→23:34)
--- NOTE | 2020-10-07 11:34 | Progress Note ---
Subjective Date of service: 10/07/20 Interval history: History of present illness: 70-year-old male with history of prostate cancer and A. fib who presents [facility] ED with complaints of dysuria x2 days. Patient states he has been experiencing a burning sensation with urination since undergoing rostatic seeds implant 2 days ago. Denies testicular pain, hematuria, urinary hesitancy, or frequency. While in the ED, he was found to be in A. fib with RVR. When questioned about his medical history patient states, " I was diagnosed with an irregular heartbeat 3 years ago, but I do not take anything for it". He was treated with IV diltiazem 30 mg x 1 and was responsive. Patient admits to having a mechanical fall a day ago and complains of left upper quadrant pain/left late ral rib pain. He rates his pain 6/10, pain is aggravated with movement and relieved with pain meds. Endorses intermittent bilateral lower extremity edema, cough, wheezing shortness of breath. Patient has received 1/2 COVID-19 vaccination. Denies history of heart failure, chest pain, fever, abdominal pain, hemoptysis, loss of smell, loss of taste, hematuria, hematochezia, recent sick contacts. 10/07 patient is alert and oriented and resting in the bed. Offers no specific complaints except mild discomfort at the beginning of urination but which improves once he starts urinating. He states he passed a few blood clots in the urine. He is urinating well without hesitancy. He denies any fever, chills, chest pain or shortness of breath. Lab results reviewed. Also discussed with patient's over the phone Assessment and plan Dysuria UA reviewed Has RBC but no WBC Most likely etiology is seed implants for his prostate cancer last week about 4 days ago Patient is able to urinate well and has a urine output of 2.4 L since yesterday Await culture results A. fib with RVR-rate controlled now Likely chronic A. fib based on patient's history Not on anticoagulation at home Continue low-dose beta-janis Check echocardiogram Will consult cardiology regarding anticoagulation Discussed with Dr. Karina Green and she recommended to hold off on therapeutic anticoagulation for now Telemetry ? New onset CHF P BNP results reviewed Troponin x2 - negative Check echocardiogram Patient denies any shortness of breath or chest pain We will hold off on diuretic Cardiology consulted Chest x-ray reviewed History of recently diagnosed prostate cancer Status post radiation seed implants last week Follow-up with urology once discharged Objective - Constitutional Vitals: Vital Signs - 12hr 10/07/20 10/07/20 10/07/20 00:13 00:16 03:48 Temperature 98.0 F Pulse Rate 96 H 96 H 88 Respiratory 19 18 Rate Blood Pressure 126/79 Blood Pressure 142/90 [Left] O2 Sat by Pulse 96 94 Oximetry 10/07/20 07:28 Temperature 97.6 F Pulse Rate 60 Respiratory 20 Rate Blood Pressure 144/71 Blood Pressure [Left] O2 Sat by Pulse 93 Oximetry General appearance: Present: no acute distress, well-nourished - EENT Eyes: PERRL, EOM intact ENT: hearing intact, clear oral mucosa - Neck Neck: supple, normal ROM, no masses or JVD - Respiratory Respiratory effort: normal Respiratory: bilateral: CTA - Cardiovascular Rhythm: irregularly irregular Heart Sounds: Present: S1 & S2 Extremities: No edema - Gastrointestinal General gastrointestinal: Present: soft, non-tender Rectal Exam: deferred - Integumentary Integumentary: clear - Musculoskeletal Musculoskeletal: strength equal bilaterally - Neurologic Neurologic: no focal deficits, moves all extremities - Psychiatric Psychiatric: appropriate mood/affect - Labs CBC & Chem 7: 10/06/20 20:55 10/06/20 20:55 Labs: Abnormal lab results 10/06/20 10/06/20 Range/Units 20:55 20:55 MCHC 36 H (32-34) % RDW 13.0 L (13.2-15.2) % [place] % (Auto) 11.4 H (0.0-7.3) % Glucose 105 H (75-100) mg/dL NT-Pro-B Natriuret Pep 3456 H (0-900) pg/mL HEART Score - HEART Score Troponin: Troponin T < 0.010 ng/mL (0.00-0.029) 10/07/20 06:00
--- NOTE | 2020-10-07 13:42 | Consultation ---
History of Present Illness Consult date: 10/07/20 Requesting physician: PATRICIA MALDONADO Consult reason: atrial fibrillation History of present illness: Patient is followed by Dr. Yi at [facility] 70-year-old male with a past medical history of paroxysmal atrial tachycardia, prostate cancer status post recent bradycardia seed therapy, and hyperlipidemia presented to [facility] emergency department complaining of pain and difficulty urinating. In the emergency department the patient had a CT of the abdomen and pelvis which did not reveal any significant abnormalities. Here in the hospital the patient is noted to have clots in his urine. And also a twelve-lead EKG reveals atrial fibrillation with a ventricular rate of 99 bpm. There are no acute ST segment changes. Chest x-ray did not reveal any acute changes. The patient had negative cardiac enzymes x2. Thyroid function was within normal limits. Past History Past Medical History: arrhythmia, other (" Irregular heartbeat" a.fib not on ac/ or rate controlled, arthritis, anxiety, sleep disorder, chronic back pain, prostate CA) Past Surgical History: Other (s/p seed implantation (10/04) Dr. Shelby (onc)) Social history: , lives with family, full code. denies: smoking, alcohol abuse, prescription drug abuse, IV drug use Family history: no significant family history Medications and Allergies Allergies Allergy/AdvReac Type Severity Reaction Status Date / Time No Known Allergies Allergy Unverified 06/12/16 16:12 Home Medications Medication Instructions Recorded Confirmed Last Taken Type Acetaminophen/Codeine [Tylenol #3] 1 tab PO Q6H PRN #14 tab 06/12/16 10/07/20 Unknown Rx Sertraline HCl [Zoloft] 100 mg PO QDAY 06/12/16 10/07/20 06/12/16 History Zolpidem (Nf) [Ambien] 10 mg PO QHS 06/12/16 10/07/20 Unknown History tiZANidine [Zanaflex] 4 mg PO DAILY 06/12/16 10/07/20 06/10/16 History traMADoL [Ultram] 50 mg PO Q4HR PRN 06/12/16 10/07/20 Unknown History Active Meds: Active Medications Albuterol (Albuterol 2.5 Mg/3 Ml Nebu) 2.5 mg IH Q4HRT PRN PRN Reason: Shortness Of Breath Aspirin (Aspirin 325 Mg Tab) 325 mg PO QDAY [facility] Last Admin: 10/07/20 10:30 Dose: 325 mg Documented by: Carvedilol (Carvedilol 6.25 Mg Tab) 6.25 mg PO BID [facility] Last Admin: 10/07/20 10:30 Dose: 6.25 mg Documented by: Famotidine (Famotidine 20 Mg Tab) 20 mg PO BID [facility] Last Admin: 10/07/20 10:30 Dose: 20 mg Documented by: Lisinopril (Lisinopril 5 Mg Tab) 5 mg PO QDAY [facility] Last Admin: 10/07/20 10:30 Dose: 5 mg Documented by: Nitroglycerin (Nitroglycerin 0.4 Mg Tab Subl) 0.4 mg SL .Q5MIN PRN PRN Reason: Chest Pain Oxycodone/Acetaminophen (Oxycodone /Acetaminophen 5-325mg Tab) 1 tab PO Q6H PRN PRN Reason: Pain, Moderate (4-6) Review of Systems Genitourinary Male: dysuria, hematuria, urinary retention Physical Examination Vital Signs Temp Pulse Resp BP Pulse Ox 98 F 117 H 20 138/88 96 10/06/20 16:59 10/06/20 16:59 10/06/20 16:59 10/06/20 16:59 10/06/20 16:59 General appearance: no acute distress HEENT: Positive: PERRL, EOMI Neck: Positive: neck supple, trachea midline Cardiac: Positive: Irregularly Regular Lungs: Positive: clear to auscultation, Normal Breath Sounds Neuro: Positive: Grossly Intact Abdomen: Positive: Unremarkable, Soft, Active Bowel Sounds Male genitourinary: Positive: deferred Skin: Positive: Clear. Negative: Rash Extremities: Present: warm. Absent: edema Results 10/06/20 20:55 10/06/20 20:55 Cardiac Enzymes 10/06/20 Range/Units 20:55 AST 31 (5-40) units/L Coagulation 10/06/20 Range/Units 20:55 PT 13.9 (12.2-14.9) Sec. INR 1.09 (0.87-1.13) CBC 10/06/20 Range/Units 20:55 WBC 5.7 (4.5-11.0) K/mm3 RBC 4.26 (3.65-5.03) M/mm3 Hgb 13.5 (11.8-15.2) gm/dl Hct 37.4 (35.5-45.6) % Plt Count 160 (140-440) K/mm3 Lymph # (Auto) 1.3 (1.2-5.4) K/mm3 [place] # (Auto) 0.7 (0.0-0.8) K/mm3 Eos # (Auto) 0.0 (0.0-0.4) K/mm3 Baso # (Auto) 0.1 (0.0-0.1) K/mm3 Comprehensive Metabolic Panel 10/06/20 Range/Units 20:55 Sodium 138 (137-145) mmol/L Potassium 3.7 (3.6-5.0) mmol/L Chloride 100.1 (98-107) mmol/L Carbon Dioxide 24 (22-30) mmol/L BUN 14 (9-20) mg/dL Creatinine 0.9 (0.8-1.3) mg/dL Glucose 105 H (75-100) mg/dL Calcium 8.7 (8.4-10.2) mg/dL AST 31 (5-40) units/L ALT 26 (7-56) units/L Alkaline Phosphatase 80 (35-129) units/L Total Protein 6.8 (6.3-8.2) g/dL Albumin 4.1 (3.9-5) g/dL - Imaging and Cardiology EKG: report reviewed EKG interpretations - Telemetry EKG Rhythm: Atrial Fibrillation Assessment and Plan Echocardiogram 02/09/2018: Normal LV systolic function, EF 55 to 60%, trace tricuspid regurgitation Last EKG in office from March 28, 2019 revealed sinus bradycardia with a ventricular rate of 59 bpm. Exercise treadmill test 02/09/2018: The patient completed 6 minutes and 20 seconds of a [place] protocol. He attained 101% of his age-predicted maximal heart rate. He achieved 8.0 METs. Negative stress test. No evidence of stress-induced ischemia Abdominal aortic duplex 02/23/2018: No evidence of abdominal aortic aneurysm Prostate cancer/recent brachytherapy seeds Hematuria/large clots noted in urine Dysuria New onset atrial fibrillation Recurrent falls Hyperlipidemia Telemetry currently reveals A. fib in the 80s. Agree with carvedilol 6.25 twice daily Would not initiate therapy with anticoagulation given gross hematuria and bladd er clots
[2020-10-08 06:31] LABS: BUN/Creatinine Ratio 27; Blood Urea Nitrogen 27 mg/dL (9-20); Calcium 8.3 mg/dL (8.4-10.2); Hemolysis Index 4
[2020-10-08] MEDS: ASPIRIN 325 MG TAB PO SCH (09:59)
[2020-10-08] MEDS: LISINOPRIL 5 MG TAB PO SCH (09:59)
[2020-10-08] MEDS: carvediloL 6.25 MG TAB PO SCH (09:59)
[2020-10-08] MEDS: FAMOTIDINE 20 MG TAB PO SCH (09:59)
--- NOTE | 2020-10-08 11:49 | Event Note ---
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 Upon talking with pt, who was alert & oriented x 4, he stated "I'm going home because I feel better. I was told my heart went back to normal." Pt still reports hematuria and passage of clots; however, he notes improvement since admission. No cardiac complaints reported. Unable to review telemetry to confirm that pt converted to sinus rhythm nor able to assess total duration of atrial fibrillation. Irregardless, would not recommend initiation of oral anticoagulation at this time. May be revisited as an outpatient upon resolution of hematuria. There is some concern regarding anticoagulation in this pt on a long-term basis given his documented history of recurrent falls. Pt is followed in our office by Dr. Brownlee. He reports that he has an upcoming appointment. Advised pt to follow-up with Dr. Brownlee at his scheduled appointment date. Pt verbalized understanding.
--- NOTE | 2020-10-08 13:14 | Discharge Summary ---
Providers - Providers Date of Admission: 10/06/20 23:11 Date of discharge: 10/08/20 Attending physician: PATRICIA MALDONADO 10/06/20 23:15 Consult to Physician [CONS] Routine Comment: Consulting Provider: LATOYNA HELMS Physician Instructions: Reason For Exam: new onset afib rvr, chf 10/07/20 00:04 Physical Therapy Evaluation and Treat [CONS] Routine Comment: Reason For Exam: s/p recent mechanical fall 10/07/20 00:05 Occupational Therapy Evaluate and Treat [CONS] Routine Comment: Reason For Exam: Recent mechanical fall 10/07/20 11:22 Consult to Physician [CONS] Routine Comment: Consulting Provider: LATONYA HELMS Physician Instructions: Reason For Exam: A Fib Primary care physician: EDGARDO RODRIGUEZ MD Hospitalization Condition: Good Hospital course: History of present illness: 70-year-old male with history of prostate cancer and A. fib who presents [facility] ED with complaints of dysuria x2 days. Patient states he has been experiencing a burning sensation with urination since undergoing rostatic seeds implant 2 days ago. Denies testicular pain, hematuria, urinary hesitancy, or frequency. While in the ED, he was found to be in A. fib with RVR. When questioned about his medical history patient states, " I was diagnosed with an irregular heartbeat 3 years ago, but I do not take anything for it". He was treated with IV diltiazem 30 mg x 1 and was responsive. Patient admits to having a mechanical fall a day ago and complains of left upper quadrant pain/left lateral rib pain. He rates his pain 6/10, pain is aggravated with movement and relieved with pain meds. Endorses intermittent bilateral lower extremity edema, cough, wheezing shortness of breath. Patient has received 1/2 COVID-19 vaccination. Denies history of heart failure, chest pain, fever, abdominal pain, hemoptysis, loss of smell, loss of taste, hematuria, hematochezia, recent sick contacts. 10/07 patient is alert and oriented and resting in the bed. Offers no specific complaints except mild discomfort at the beginning of urination but which improves once he starts urinating. He states he passed a few blood clots in the urine. He is urinating well without hesitancy. He denies any fever, chills, chest pain or shortness of breath. Lab results reviewed. Also discussed with patient's over the phone 10/08 doing well. No complaints. Lab results reviewed. Patient is urinating fairly well/medically stable for discharge. Cardiology note reviewed Assessment and plan Dysuria UA reviewed Has RBC but no WBC Most likely etiology is seed implants for his prostate cancer last week about 4 days ago Patient is able to urinate well and has a urine output of 2.4 L since yesterday Urine was not sent for culture A. fib with RVR-rate controlled now Likely chronic A. fib based on patient's history Not on anticoagulation at home Continue low-dose beta-janis Cardiology note reviewed No anticoagulation at this time as there is history of falls We will follow up with Dr. Jaffe ? New onset CHF P BNP results reviewed Troponin x2 - negative Patient denies shortness of breath Cardiology consulted History of recently diagnosed prostate cancer Status post radiation seed implants last week Follow-up with urology once discharged Patient states that he has follow-up appointment with urologist soon Will discharge the patient on Flomax for now Disposition: DC-01 TO HOME OR SELFCARE Final Discharge Diagnosis (Prints w/discharge instructions): Urinary retention Time spent for discharge: 36 minutes Core Measure Documentation - Palliative Care Palliative Care/ Comfort Measures: Not Applicable - Core Measures Any of the following diagnoses?: none Exam - Constitutional Vitals: Temp Pulse Resp BP Pulse Ox 97.9 F 98 H 19 121/67 99 10/08/20 08:25 10/08/20 10:00 10/08/20 10:00 10/08/20 09:59 10/08/20 10:00 General appearance: Present: no acute distress - EENT Eyes: Present: PERRL, EOM intact ENT: hearing intact, clear oral mucosa - Neck Neck: Present: supple, normal ROM - Respiratory Respiratory effort: normal Respiratory: bilateral: CTA - Cardiovascular Rhythm: regular Heart Sounds: Present: S1 & S2 - Extremities Extremities: No edema - Abdominal General gastrointestinal: Present: soft, non-tender Male genitourinary: Present: deferred - Rectal Rectal Exam: deferred - Integumentary Integumentary: Present: clear - Musculoskeletal Musculoskeletal: strength equal bilaterally - Psychiatric Psychiatric: appropriate mood/affect - Neurologic Neurologic: no focal deficits Plan Activity: advance as tolerated, fall precautions Weight Bearing Status: Weight Bear as Tolerated Diet: regular, low fat, low cholesterol, low salt Follow up with: EDGARDO RODRIGUEZ MD [Primary Care Provider] - 3-5 Days DAVID JAFFE MD [Staff Physician] - 10 Days Prescriptions: carvediloL [Coreg] 6.25 mg PO BID #60 tablet Tamsulosin [Flomax] 0.4 mg PO QDAY #30 cap Famotidine [Pepcid] 20 mg PO BID #30 tablet lisinopriL [Zestril TAB] 5 mg PO QDAY #30 tablet
[2020-10-08 13:52] VITALS: BP 118/68
--- NOTE | 2020-10-09 10:20 | Electrocardiograph Report ---
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
--- NOTE | 2020-10-09 10:24 | Electrocardiograph Report ---
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 Electronically Signed On 10-09-2020 10:23:39 EDT by Dave Odom
== END 2020-10-08 14:32 | disposition home or self-care (01) ==
LOC: ED 15:53 → 4A 23:11
PROVIDERS: ADMIT Hospitalist; ATTEND Internal Medicine
DX: R30.0 Dysuria (principal); R33.9 Retention of urine, unspecified; R31.9 Hematuria, unspecified; I48.91 Unspecified atrial fibrillation; I11.0 Hypertensive heart disease with heart failure; R10.12 Left upper quadrant pain; R07.81 Pleurodynia; I50.9 Heart failure, unspecified; F41.9 Anxiety disorder, unspecified; M19.90 Unspecified osteoarthritis, unspecified site; G89.29 Other chronic pain; E78.5 Hyperlipidemia, unspecified; J45.909 Unspecified asthma, uncomplicated; M54.9 Dorsalgia, unspecified; Z85.46 Personal history of malignant neoplasm of prostate; Z79.82 Long term (current) use of aspirin; Z79.899 Other long term (current) drug therapy
CPT/HCPCS: 36415; 71046; 74177; 80048; 80053; 81001; 82550; 83690; 83735; 83880; 84443; 84484; 85025; 85610; 93005; 94644; 96372; 96374; 96375; 96376; 97162; 97165; 99291; G0378; J1650; J1940; J2930; Q9967

== ENCOUNTER 2021-06-10 08:16 | Day surgery (SDC) | payer MEDICARE ==
--- NOTE | 2021-06-10 09:09 | Anesthesia Consultation ---
Anesthesia Consult and Med Hx Date of service: 06/10/21 - Airway Anesthetic Teeth Evaluation: Good ROM Head & Neck: Adequate Mental/Hyoid Distance: Adequate Mallampati Class: Class II Intubation Access Assessment: Probably Good - Pre-Operative Health Status ASA Pre-Surgery Classification: ASA3 Proposed Anesthetic Plan: MAC - Cardiovascular System Hx Hypertension: Yes Hx Coronary Artery Disease: No (high cholesterol) Hx Cardia Arrhythmia: Yes (atrial fibrillation) - Central Nervous System Hx Back Pain: Yes (cervical spine arthritis) Hx Psychiatric Problems: Yes (depression) - Endocrine Hx Renal Disease: No (prostate CA) - Other Systems Hx Cancer: Yes (prostate, s/p seeds radiation)
--- NOTE | 2021-06-10 09:10 | Anesthesia Day of Surgery ---
Anesthesia Day of Surgery - Day of Surgery Patient Examined: Yes Patient H&P Reviewed: Yes Patient is NPO: Yes
[2021-06-10 09:23] LABS: Hematocrit 42.6 % (35.5-45.6); Hemoglobin 14.1 gm/dl (11.8-15.2); Mean Corpuscular HGB Conc 33 % (32-34); Mean Corpuscular Volume 89 fl (84-94); Platelet Count 195 K/mm3 (140-440); Red Blood Count 4.79 M/mm3 (3.65-5.03)
[2021-06-10 09:33] LABS: INR 0.97 (0.87-1.13)
[2021-06-10 09:36] LABS: BUN/Creatinine Ratio 23; Blood Urea Nitrogen 18 mg/dL (9-20); Calcium 9.7 mg/dL (8.4-10.2); Hemolysis Index 15
[2021-06-10] MEDS ORDERED: ATROPINE 0.1% (1 MG/10 ML) CARDIAC SYRINGE ONE (09:40)
[2021-06-10] MEDS ORDERED: SODIUM CHLORIDE 0.9% 500 ML 500 ML IV SCH (10:00)
[2021-06-10 11:35] VITALS: BP 142/87
--- NOTE | 2021-06-10 12:19 | Short Stay Summary ---
Short Stay Documentation Date of service: 06/10/21 - History H&P: obtained from office - Allergies and Medications Current Medications: Allergies No Known Allergies Allergy (Unverified 06/12/16 16:12) Home Medications Medication Instructions Recorded Confirmed Last Taken Type Acetaminophen/Codeine [Tylenol 1 tab PO Q6H PRN #14 tab 06/12/16 06/10/21 Unknown Rx /Codeine # 3 tab] Sertraline HCl [Zoloft] 100 mg PO QDAY 06/12/16 06/10/21 06/12/16 History Zolpidem (Nf) [Ambien (Nf)] 10 mg PO QHS 06/12/16 06/10/21 Unknown History tiZANidine [Zanaflex 4mg TAB] 4 mg PO DAILY 06/12/16 06/10/21 06/09/21 History 4 MG traMADoL [Ultram 50 MG tab] 50 mg PO Q4HR PRN 06/12/16 06/10/21 06/09/21 History 50 MG Tamsulosin [Flomax] 0.4 mg PO QDAY #30 cap 10/08/20 06/10/21 06/09/21 Rx 0.4 MG carvediloL [Coreg] 6.25 mg PO BID #60 tablet 10/08/20 06/10/21 Unknown Rx Apixaban [Eliquis] 5 mg PO BID 06/10/21 06/10/21 06/10/21 History 5 MG Temazepam [Restoril] 30 mg PO DAILY 06/10/21 06/10/21 06/09/21 History 30 MG Active Medications Sodium Chloride (Nacl 0.9% 500 Ml) 500 mls @ 50 mls/hr IV DIRECT JANINE Stop: 06/10/21 20:00 - Brief post op/procedure progress note Date of procedure: 06/10/21 Pre-op diagnosis: cardioversion Post-op diagnosis: same Estimated blood loss: none - Hospital course Hospital course: Patient underwent cardioversion. No complications. Patient tolerated procedure well - Disposition Condition at discharge: Good Disposition: 01 HOME / SELF CARE / HOMELESS Short Stay Discharge Plan Activity: advance as tolerated Diet: low fat, low cholesterol, low salt Additional Instructions: follow up with Primary Medical Doctor in 1 week, return to emergency room for medical emergency . Follow up with: EDGARDO RODRIGUEZ MD [Primary Care Provider] - 7 Days
--- NOTE | 2021-06-10 12:24 | Cardiac Catherization Report ---
DATE OF SERVICE: 06/10/2021 C[facility]ERS[facility] ORDERING PHYSICIAN: Dr. Hernandez. CLINICAL INFORMATION: A 70-year-old male with atrial fibrillation, hypertension, hyperlipidemia, on oral anticoagulation. The patient's sedation by Anesthesiology. The patient was successfully cardioverted with 300 biphasic joule from atrial fibrillation to sinus rhythm. SUMMARY: Successful cardioversion from atrial fibrillation to sinus rhythm with one 300 biphasic joule. Discussed this with the patient and the patient's family. Continue current medications. TID: [id number] RECEIPT: [id number] JESSI/MISAEL/ANITHA MTDD
--- NOTE | 2021-06-10 16:23 | Post Anesthesia Evaluation ---
- Post Anesthesia Evaluation Patient Participated: Yes Airway Patent: Yes Stable Respiratory Function: Yes Nausea/Vomiting: No Temp > 96.8F: Yes Pain Manageable: Yes Adequeate Hydration: Yes Anesthesia Complications: No Block Receding Appropriately: Not Applicable Patient on Ventilator: No
--- NOTE | 2021-06-11 08:57 | Electrocardiograph Report ---
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
--- NOTE | 2021-06-11 08:57 | Electrocardiograph Report ---
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
== END 2021-06-10 08:17 | disposition home or self-care (01) ==
LOC: CATHLABREC 08:16
PROVIDERS: ATTEND Internal Medicine
DX: I48.19 Other persistent atrial fibrillation (principal); I25.10 Atherosclerotic heart disease of native coronary artery without angina pectoris; I10 Essential (primary) hypertension; M19.90 Unspecified osteoarthritis, unspecified site; F41.9 Anxiety disorder, unspecified; J45.909 Unspecified asthma, uncomplicated; Z79.899 Other long term (current) drug therapy; Z98.890 Other specified postprocedural states; Z87.891 Personal history of nicotine dependence
CPT/HCPCS: 36415; 80048; 85027; 85610; 85730; 92960; 93005; J7040; 93010; J0461